=== PATIENT | male | born 1945 | race Caucasian/White ===

== ENCOUNTER → 2016-09-10 | Outpatient (CLI) | payer OTHER ==
[2015-03-03 16:02] VITALS: BP 128/64
[~2016-09-10] MED LIST: ALLO100T PO; ALPR0.257 PO; ASPI-482 PO; BUPR150T4 PO; CRESTOR20 MG PO; DICL100T PO; FENO43CA PO; FISH1CAP PO; GABA-585 PO; GLIM2TAB2 PO; HYDR-965 PO; ISOS30TA17 PO; LISI10TA2 PO; METF-620 PO; METO25TA4 PO; METO25TA9 PO; MULT-246 PO; MULT-658 PO; NITR0.4T SL; OMEP40CA5 PO; RANI150T2 PO; SITA100T PO; hydrocodone; metformin
--- NOTE | 2016-09-10 12:29 | KCIC ---
PROCEDURE CT of the abdomen and pelvis without intravenous contrast HISTORY Right lower quadrant pain for 1 month with diarrhea. No intravenous contrast due to poor renal function. Oral contrast was given. TECHNIQUE No intravenous contrast due to renal function. Oral contrast given. Exposure: One or more of the following individualized dose reduction techniques were utilized for this exam: 1. Automated exposure control. 2. Adjustment of the mA and/or kV according to patient size. 3. Use of iterative reconstruction technique. COMPARISON June 26, 2013. FINDINGS 5 millimeter noncalcified nodule identified in the right lung base. This is unchanged since the prior study. Examination of solid viscera, GI tract and vascular structures is compromised by the noncontrast technique. Mild coronary calcification. Liver and spleen appear unremarkable. Pancreas unremarkable. No evidence of adrenal mass. No evidence of focal lesion of either kidney. No urolithiasis or obstruction. Gallbladder surgically absent. No aortic aneurysm. Mild atheromatous calcification. No significant lymph node enlargement. No evidence of ascites. Prostate gland is enlarged, measures 5.8 cm wide, similar to prior study. Unopacified urinary bladder demonstrates no obvious abnormality, and is incompletely distended. No evidence of bowel obstruction. No acute pericolonic inflammation. The appendix is normal. There is a focal density within the cecum, measures about 5.4 cm diameter. This most likely represents some focal stool. There is mild retained stool throughout the remainder of the colon and rectum. Mild spondylosis of the lower spine. IMPRESSION 1. Small 5 millimeter noncalcified right lung base nodule, stable since prior exam. 2. The appendix is normal. 3. Focal density within the right cecum most likely focal stool. Although less likely, it is difficult to exclude a colon mass. Therefore, short-term follow up could be of benefit to document that this does not persist. 4. Prostatomegaly is again identified. Electronically signed by: Baldemar aPz MD (September 10, 2016 12:27:31)
== END | disposition home or self-care (01) ==
LOC: KCIC CT 08:51
PROVIDERS: ATTEND Family Medicine
DX: R10.31 Right lower quadrant pain (principal); I10 Essential (primary) hypertension; R19.7 Diarrhea, unspecified; N40.0 Benign prostatic hyperplasia without lower urinary tract symptoms; Z86.79 Personal history of other diseases of the circulatory system; F17.200 Nicotine dependence, unspecified, uncomplicated; Z79.01 Long term (current) use of anticoagulants; Z79.84 Long term (current) use of oral hypoglycemic drugs
CPT/HCPCS: 74176; 82565

== ENCOUNTER → 2016-10-17 | Day surgery (SDC) | payer OTHER ==
[~2016-10-17] MED LIST changes: -ISOS30TA17 PO; +ISOS30TA19 PO; +IV RINGERS,LACTATED 1000ML 1,000 ML IV SCH; +LIDOCAINE 2% PF Vial for OR 5 ML VIAL. ONE; +PROPOFOL 20 ML IV ONE; +PROPOFOL 60 ML IV ONE
[2016-10-17 11:26] VITALS: BP 116/75
--- NOTE | 2016-10-18 14:46 | PATHOLOGY ---
PATHOLOGY REPORT * * * * * * * * FINAL DIAGNOSIS: A. Small bowel biopsy: - No significant pathologic abnormalities. B. Gastric biopsy, antrum: - Consistent with reactive gastropathy. C. Esophageal biopsy, distal esophagus: - Segments of gastric and esophagogastric mucosa showing chronic inflammation. D. Esophageal biopsy, mid esophagus: - Segments of hyperplastic squamous esophageal mucosa consistent with reflux esophagitis. E. Terminal ileum biopsy: - No significant pathologic abnormalities. F. Random colon biopsies: - No significant pathologic abnormalities. COMMENT: A. Sections of the small bowel biopsy reveal segments of duodenal and small intestinal mucosa. Where best oriented, the mucosal villi appear normal. There are no sprue-like changes or significant inflammatory changes. B. Sections of the gastric antral biopsy show congestion, foveolar hyperplasia, and no significant inflammation. An immunoperoxidase stain for Helicobacter is obtained. No Helicobacter organisms are identified. The findings are consistent with a reactive gastropathy. C. Sections of the distal esophageal biopsy reveal segments of gastric mucosa and a single segment of esophagogastric mucosa showing mild to moderate chronic inflammation. There is no evidence of Dunbar change, dysplasia or malignancy. D. Sections of the middle esophageal biopsy reveal segments of tangentially oriented hyperplastic squamous esophageal mucosa consistent with reflux esophagitis. E. Sections of the terminal ileum biopsy reveal segments of small intestine mucosa. There are no sprue-like changes or significant inflammatory changes. F. Sections of the random colon biopsy reveal multiple segments of colonic mucosa. There is no evidence of a chronic destructive colitis, lymphocytic colitis, or collagenous colitis. Special Stain Performed: Immunoperoxidase stain for Helicobacter on B1. REPORT ELECTRONICALLY SIGNED BY: Sanjay Madden M.D. DATE/TIME: 10/18/2016 14:45 * * * * * * * * GROSS PATHOLOGY: A. Received in formalin labeled "Nely Pichardo, small bowel biopsy," are 4 segments of arzate soft tissue measuring from 0.1 to 0.3 cm in maximum dimension. The specimen is submitted entirely in cassette A1. B. Received in formalin labeled "antrum," are two segments of arzate soft tissue measuring from 0.2 and 0.3 cm in maximum dimension. The specimen is submitted entirely in cassette B1. C. Received in formalin labeled "distal esophagus," are 3 segments of arzate soft tissue measuring from 0.2 to 0.3 cm in maximum dimension. The specimen is submitted entirely in cassette C1. D. Received in formalin labeled "mid esophagus," are two segments of arzate soft tissue measuring from 0.1 and 0.2 cm in maximum dimension. The specimen is submitted entirely in cassette D1. E. Received in formalin labeled "terminal ileum," are two segments of arzate soft tissue each measuring from 0.3 cm in maximum dimension. The specimen is submitted entirely in cassette E1. F. Received in formalin labeled "random colon," are multiple segments of arzate soft tissue measuring from 0.1 to 0.4 cm in maximum dimension. The specimen is submitted entirely in cassette F1. (JPM; 10/17/16) INITIAL CPT CODE(S): A; 98052 B; 05267, 72449 C; 12538 D; 45626 E; 29523 F; 33425 Professional services [place] [facility] [place] [address] Technical services performed by [facility] at [address] [place] [address] [address] [address]. SPECIMEN(S) RECEIVED: A.Small bowel biopsy B.Antrum biopsy C.Distal esophagus D.Mid esophagus E.Terminal ileum F.Random colon CLINICAL HISTORY: Dysphagia, abdominal pain PATIENT: NELY PICHARDO /AGE: 206/23/1945 (Age: 71) PATIENT #: [id number] CASE #: SPECIMEN COLLECTION DATE: 10/17/2016 SPECIMEN RECEIVED DATE: 10/17/2016 [facility] - [id number] [place] [address] - PHONE: [phone] * * * END OF REPORT * * *
== END | disposition home or self-care (01) ==
LOC: ENDOS 08:45
PROVIDERS: ATTEND Internal Medicine Gastroenterology
DX: K64.0 First degree hemorrhoids (principal); K21.0 Gastro-esophageal reflux disease with esophagitis; Z87.19 Personal history of other diseases of the digestive system; M19.90 Unspecified osteoarthritis, unspecified site; E11.9 Type 2 diabetes mellitus without complications; E78.00 Pure hypercholesterolemia, unspecified; E78.5 Hyperlipidemia, unspecified; I25.10 Atherosclerotic heart disease of native coronary artery without angina pectoris; F17.210 Nicotine dependence, cigarettes, uncomplicated; Z83.3 Family history of diabetes mellitus; Z72.89 Other problems related to lifestyle; Z79.82 Long term (current) use of aspirin; Z90.49 Acquired absence of other specified parts of digestive tract; Z87.01 Personal history of pneumonia (recurrent); Z86.39 Personal history of other endocrine, nutritional and metabolic disease; Z87.39 Personal history of other diseases of the musculoskeletal system and connective tissue; Z88.8 Allergy status to other drugs, medicaments and biological substances
CPT/HCPCS: 43239; 43450; 45380; 82962; 88305; 88342; J2704

== ENCOUNTER 2017-09-24 17:14 | Emergency (ER) | payer OTHER ==
[2017-09-24 17:47] LABS: ADD MAN DIFF? NO
[2017-09-24 17:48] LABS: AGAP ISTAT 15 mmol/L (6-14); BASO # 0.1 x10^3/uL (0.0-0.2); BASO % 1 % (0-3); BUN ISTAT 21 mg/dL (8-26); CHLORIDE ISTAT 106 mmol/L (98-110); CREATININE ISTAT 1.6 mg/dL (0.5-1.4); EOS # 0.2 x10^3/uL (0.0-0.7); EOS % 3 % (0-3); GLUCOSE ISTAT 156 mg/dL (70-99); HEMATOCRIT 43.3 % (39.0-53.0); HEMATOCRIT ISTAT 41 % (37-52); HEMOGLOBIN 14.5 g/dL (13.0-17.5); HEMOGLOBIN ISTAT 13.9 g/dL (14-18); ION CA ISTAT 1.14 mmol/L (1.13-1.32); LYMPH # 2.3 x10^3/uL (1.0-4.8); LYMPH % 33 % (24-48); MEAN CORPUSCULAR HEMOGLOBIN 30 pg (25-35); MEAN CORPUSCULAR HGB CONC 34 g/dL (31-37); MEAN CORPUSCULAR VOLUME 89 fL (79-100); MONO # 0.6 x10^3/uL (0.0-1.1); MONO % 8 % (0-9); NEUT # 3.9 x10^3uL (1.8-7.7); NEUT % 55 % (31-73); PLATELET COUNT 181 x10^3/uL (140-400); POTASSIUM ISTAT 4.2 mmol/L (3.5-5.0); RED BLOOD COUNT 4.88 x10^6/uL (4.30-5.70); RED CELL DISTRIBUTION WIDTH 14.1 % (11.5-14.5); SODIUM ISTAT 139 mmol/L (135-145); TOT CO2 ISTAT 23 mmol/L (23-32); WHITE BLOOD COUNT 7.1 x10^3/uL (4.0-11.0)
[2017-09-24] MEDS: IV NORMAL SALINE 500ML BAG 500 ML IV ×2 (17:50→18:40)
[2017-09-24 18:03] LABS: ANION GAP 5 (6-14); BLOOD UREA NITROGEN 22 mg/dL (8-26); CALCIUM 8.4 mg/dL (8.5-10.1); CARBON DIOXIDE 26 mmol/L (21-32); CHLORIDE 106 mmol/L (98-107); CREATININE 1.7 mg/dL (0.7-1.3); GLUCOSE 170 mg/dL (70-99); POTASSIUM 4.2 mmol/L (3.5-5.1); SODIUM 137 mmol/L (136-145)
[2017-09-24 18:14] LABS: TROPONINI < 0.017 ng/mL (0.000-0.055)
[2017-09-24 18:15] LABS: NT-PRO BNP 114 pg/mL (0-124)
[2017-09-24] MEDS ORDERED: IV NORMAL SALINE 1000ML BAG 1,000 ML IV (18:45)
[2017-09-24] MEDS: IOHEXOL 300 MG/ML 100ML VIAL. IV (18:53)
== END 2017-09-24 20:40 | disposition home or self-care (01) ==
LOC: ER 20:40
DX: R42 Dizziness and giddiness (principal); E11.9 Type 2 diabetes mellitus without complications; K21.9 Gastro-esophageal reflux disease without esophagitis; E78.00 Pure hypercholesterolemia, unspecified; I10 Essential (primary) hypertension; M10.9 Gout, unspecified; Z90.49 Acquired absence of other specified parts of digestive tract; Z98.890 Other specified postprocedural states; Z88.8 Allergy status to other drugs, medicaments and biological substances
CPT/HCPCS: 36415; 70496; 70498; 80047; 80048; 83880; 84484; 85025; 93005; 96360; 99285; J7040; Q9967

== ENCOUNTER → 2017-09-24 | Outpatient (CLI) | payer OTHER | END | disposition home or self-care (01) | LOC: KCIC US 15:03 | DX: I10 Essential (primary) hypertension (principal); E11.9 Type 2 diabetes mellitus without complications; E78.00 Pure hypercholesterolemia, unspecified; F17.200 Nicotine dependence, unspecified, uncomplicated; R42 Dizziness and giddiness | CPT/HCPCS: 93880 ==

== ENCOUNTER → 2018-11-12 | Outpatient (CLI) | payer OTHER ==
[2017-09-24 20:21] VITALS: BP 174/76
[~2018-11-12] MED LIST changes: +ATOR20TA58 PO; +BUPR150T6 PO; +CETI10TA22 PO; +HYDR-3164 PO; +HYDR-3165 PO; -HYDR-965 PO; -IV RINGERS,LACTATED 1000ML 1,000 ML IV SCH; -LIDOCAINE 2% PF Vial for OR 5 ML VIAL. ONE; -METF-620 PO; +METF10007 PO; +METO-239 PO; -METO25TA9 PO; -PROPOFOL 20 ML IV ONE; -PROPOFOL 60 ML IV ONE
--- NOTE | 2018-11-12 12:04 | RAD ---
MR#: [id number] Date of Study: 11/12/2018 Ordering Physician: OSIEL CARVALHO, Referring Physician: NIMISHA BUENO Tech: RT Dewey VarelaR) (N) APPROVED REPORT Test Type: Exercise Stress Nurse/Tech: nayla Hobbs RN Test Indications: CAD Cardiac History: See Electronic Medical Record Medications: See Electronic Medical Record Medical History: CAD, smoker Resting ECG: SR Resting Heart Rate: 63 bpm Resting Blood Pressure: 155/65mmHg Pretest Chest Pain: None Nurse/Tech Notes lung sounds coarse, S1S2 Consent: The procedure was explained to the patient in lay terms. Informed consent was witnessed. Jhon eout was entered into [employer]. History and Stress Test performed by Nayla Hobbs RN Stress Symptoms Dyspnea POST EXERCISE Reason for Termination: Reached target heart rate Target HR: 126 Max HR: 130 bpm Exercise duration: 7:09 min:sec, 2 Stage Max Blood Pressure: 192/85mmHg Blood Pressure response to exercise: Normal blood pressure response during stress. Heart Rate response to exercise: normal response Chest Pain: No. Arrhythmia: No. ST Change: No. INTERPRETATION Stress EKG Conclusion: Non-diagnostic EKG due to motion artifact. Imaging Protocol IMAGE PROTOCOL: Rest Tc-99m/stress Tc-99m 1 day Rest: Stress: Viability: Radiopharm.Tc99m EdlmdixfdWq76a Sestamibi Lajp35pNh 33mCi Duration 15min. 15min. Img Date 11/12/2018 11/12/2018 Inj-Img Opdx55ujs. 60min. Rest Admin Site:IV - Right HandAdministrator:RT Avery (Ginny)(N) Stress Admin Site: IV - Right HandAdministrator: WALLY Arriola STRESS DATA End Diast. Vol.96.0mlAv. Heart Rate80.0bpm End Syst. Vol.26.0mlCO Index BSA5.6L/min Myocardial Zfdz329.0gEject. Msrtvheb04.0% Stress Rates Pk. Fill Rate3.30EDV/secLVtime Pk. Fill 230.76msec Pk. Empty Rate5.05ESV/secLVtime Pk. Vimbz664.31msec 1/3 Pk. Fill0.88EDV/sec Stress Scores Regional WT1.00Summed WT8.00 Regional WM0.00Summed WM0.00 LV Perfusion There is a moderate sized septal reversible defect suggestive of impaired perfusion reserve in the LA D. Wall Motion Normal wall motion. LV Perf. Quant 17 Seg. SSS8.00 17 Seg. SRS1.00 17 Seg. SDS7.00 Stress Defect Extent (% LAD)21.30Rest Defect Extent (% LAD)0.00Rev. Defect Extent (% LAD)20.00 Stress Defect Extent (% LCX) 0.00Rest Defect Extent (% LCX)0.00Rev. Defect Extent (% LCX)0.00 Stress Defect Extent (% RCA)7.80Rest Defect Extent (% RCA)0.00Rev. Defect Extent (% RCA)7.80 Stress Defect Extent (% EMMA)15.00Rest Defect Extent (% EMMA)0.00Rev. Defect Extent (% EMMA)14.60 Other Information Quality:Fair Risk Assessment: Moderate Risk Conclusion 1. Non-diagnostic EKG due to motion artifact. 2. Average exercise capacity at 7.0 mets 3. Reversible septal defect. 4. Moderate risk study. 5. EF at 70%. Signed by : Osiel Carvalho, Electronically Approved : 11/12/2018 12:04:01
== END | disposition home or self-care (01) ==
LOC: NM 08:20
PROVIDERS: ATTEND Internal Medicine Cardiovascular Disease
DX: I25.10 Atherosclerotic heart disease of native coronary artery without angina pectoris (principal); Z87.891 Personal history of nicotine dependence; Z79.01 Long term (current) use of anticoagulants
CPT/HCPCS: 78452; 93017; A9500; 96376

== ENCOUNTER → 2018-12-10 | Outpatient (CLI) | payer OTHER ==
[2017-09-24 20:21] VITALS: BP 174/76
--- NOTE | 2018-12-10 10:00 | RAD ---
MR#: [id number] Date of Study: 12/10/2018 Ordering Physician: OSIEL CARVALHO, Referring Physician: OSIEL CARVALHO, Tech: Vanessa Hernandez RVT,CONI APPROVED REPORT Patient Location: OUT-PATIENT Laterality:Bilateral Indications Dizziness and Vertigo Risk Factors Hypertension: Hyperlipidemia Diabetes CAD, Smoking Doppler Spectral Velocity Analysis Right Left pCCA 71/9 cm/spCCA 79/14 cm/s mCCA 50/7 cm/smCCA 49/9 cm/s dCCA 31/9 cm/sdCCA 34/6 cm/s ECA 108/9 cm/sECA 121/9 cm/s pICA 38/12 cm/spICA 58/16 cm/s April 64/18 cm/smICA 77/27 cm/s dICA 68/19 cm/sdICA 86/28 cm/s Vert. 46/11 cm/sVert. 24/8 cm/s ICA/CCA 0.96ICA/CCA 1.09 Findings Grayscale images of the bilateral common carotid, external and internal carotid vessels demonstrates mild plaque at the level of the carotid bulbs. Bilateral vertebral velocities are antegrade. No significant stenosis is identified based on velocity criteria. Grayscale images are also grossly u nremarkable. Overall 0 to less than 50% stenosis. Critical Notification Critical Value: No <Conclusion> No significant carotid occlusive disease bilaterally. Signed by : Osiel Carvalho, Electronically Approved : 12/10/2018 09:59:38
--- NOTE | 2018-12-10 10:01 | RAD ---
MR#: [id number] Date of Study: 12/10/2018 Ordering Physician: OSIEL CARVALHO, Referring Physician: OSIEL CARVALHO, Tech: Vanessa Hernandez RVT,CONI APPROVED REPORT Patient Location: OUT-PATIENT Risk Factors Hypertension Diabetes CAD Smoking Duplex Results A/PTransverseLongitudinal Proximal Aorta 2.8cm2.9cm Mid Aorta 2.4cm2.8cm Distal Aorta 2.1cm1.9cm Rt. Common Iliac Artery1.1cm1.4cm Lt. Common Iliac Artery 1.4cm1.1cm Doppler VelocityWaveform Aorta Mid. 90.7 cm/sec Distal Aorta 88.3 cm/sec Rt. Common Iliac Tqsihi502.6 cm/sec Lt. Common Iliac Artery 100.0 cm/sec Findings Grayscale images of the abdominal aorta are limited due to body habitus and bowel gas No significant aortic aneurysm is noted. Maximum dimension approximately 2.8 cm. No significant iliac artery aneurysm is noted. No velocity deceleration is noted. No obvious high-grade stenosis identified by spectral and color Do ppler images. Critical Notification Critical Value: No <Conclusion> Negative for abdominal aortic aneurysm Signed by : Osiel Carvalho, Electronically Approved : 12/10/2018 10:00:53
--- NOTE | 2018-12-10 11:17 | CARD ---
MR#: [id number] Date of Study: 12/10/2018 Ordering Physician: OSIEL HUBBARD, Referring Physician: OSIEL HUBBARD, Tech: Wendy Mendiola [facility] APPROVED REPORT EXAM: Two-dimensional and M-mode echocardiogram with Doppler and color Doppler. Other Information Quality : AverageHR: 72bpm Rhythm : NSR INDICATION PAD 2D DIMENSIONS RVDd3.2 (2.9-3.5cm)Left Atrium(2D)3.5 (1.6-4.0cm) IVSd1.2 (0.7-1.1cm)Aortic Root(2D)3.6 (2.0-3.7cm) LVDd4.8 (3.9-5.9cm)LVOT Diameter2.6 (1.8-2.4cm) PWd1.1 (0.7-1.1cm)LVDs3.3 (2.5-4.0cm) FS (%) 30.6 %SV61.8 ml LVEF(%)58.0 (>50%) Aortic Valve AoV Peak Reji.156.3cm/sAoV VTI30.8cm AO Peak GR.9.8mmHgLVOT Peak Reji.111.0cm/s AO Mean GR.5mmHgAVA (VMAX)3.78cm2 HARJIT (VTI)3.80cm2 Mitral Valve MV E Ugeriyyi30.4cm/sMV DECEL HDGF345ic MV A Ewwgupns284.5cm/sE/A Ratio0.5 Pulmonary Valve PV Peak Fretonsl52.8cm/s LEFT VENTRICLE The left ventricle is normal size. There is mild concentric left ventricular hypertrophy. The left ve ntricular systolic function is normal and the ejection fraction is within normal range. The Ejection Fraction is 55-60%. There is normal LV segmental wall motion. Transmitral Doppler flow pattern is Gra de I-abnormal relaxation pattern. RIGHT VENTRICLE The right ventricle is normal size. There is normal right ventricular wall thickness. The right ventr icular systolic function is normal. ATRIA The left atrium size is normal. The right atrium size is normal. The interatrial septum is intact wit h no evidence for an atrial septal defect or patent foramen ovale as noted on 2-D or Doppler imaging. AORTIC VALVE The aortic valve is calcified but opens well. The aortic valve is trileaflet. Doppler and Color Flow revealed no significant aortic regurgitation. There is no significant aortic valvular stenosis. There is no aortic valvular vegetation. MITRAL VALVE The mitral valve is normal in structure and function. There is no evidence of mitral valve prolapse. There is no mitral valve stenosis. Doppler and Color Flow revealed no mitral valve regurgitation note d. TRICUSPID VALVE The tricuspid valve is normal in structure and function. Doppler and Color Flow revealed no tricuspid valve regurgitation noted. There is no tricuspid valve prolapse or vegetation. There is no tricuspid valve stenosis. PULMONIC VALVE The pulmonic valve is not well visualized. GREAT VESSELS The aortic root is normal in size. The ascending aorta is normal in size. The IVC is normal in size a nd collapses >50% with inspiration. PERICARDIAL EFFUSION There is no evidence of significant pericardial effusion. Critical Notification Critical Value: No <Conclusion> The left ventricular systolic function is normal and the ejection fraction is within normal range. Th e Ejection Fraction is 55-60%. There is normal LV segmental wall motion. Signed by : Osiel Hubbard, Electronically Approved : 12/10/2018 11:16:58
== END | disposition home or self-care (01) ==
LOC: US 14:54
PROVIDERS: ATTEND Internal Medicine Cardiovascular Disease
DX: I65.23 Occlusion and stenosis of bilateral carotid arteries (principal); I35.8 Other nonrheumatic aortic valve disorders; E11.22 Type 2 diabetes mellitus with diabetic chronic kidney disease; I13.10 Hypertensive heart and chronic kidney disease without heart failure, with stage 1 through stage 4 chronic kidney disease, or unspecified chronic kidney disease; N18.9 Chronic kidney disease, unspecified; I25.10 Atherosclerotic heart disease of native coronary artery without angina pectoris; E78.5 Hyperlipidemia, unspecified; I73.9 Peripheral vascular disease, unspecified
CPT/HCPCS: 76770; 93306; 93880

== ENCOUNTER → 2021-03-26 | Outpatient (CLI) | payer MEDICARE ==
[2017-09-24 20:21] VITALS: BP 174/76
[~2021-03-26] MED LIST changes: +BUPR150T21 PO; -BUPR150T6 PO; -CETI10TA22 PO; +CETI10TA74 PO; -FENO43CA PO; +FENO43CA5 PO; -GLIM2TAB2 PO; +GLIM2TAB7 PO; +LISI10TA16 PO; -LISI10TA2 PO; -NITR0.4T SL; +NITR0.4T24 SL; -OMEP40CA5 PO; +OMEP40CA7 PO
--- NOTE | 2021-03-26 15:16 | KCIC ---
CT of the chest without contrast. 03/26/2021 INDICATION: Pain in the left upper chest. COMPARISON STUDY: CT of the chest with contrast June 24, 2005. TECHNIQUE: Multidetector CT imaging of the chest was performed without contrast FINDINGS: Heart size is normal. No pericardial effusion is seen. Areas of coronary calcification note d. No pathologically enlarged mediastinal adenopathy is identified. Emphysematous changes are noted t hroughout the lungs. There is a calcified granuloma in the left upper lung. No pneumothorax, pleural effusion, or acute appearing infiltrate is identified. No evidence of acute osseous abnormality is id entified. To the right of the xiphoid process there is a round, smoothly marginated nodule immediat suzie under the skin measuring 1.3 cm in diameter. The density is relatively low. The appearance here a s a benign etiology such as cyst. No other nodules present on CT of the abdomen from September 10, 2016, tho ugh smaller at that time. Impression: 1. No evidence of acute cardiopulmonary process 2. 1.3 cm nodule in the subcutaneous tissues of the right anterior chest, slightly increased since 2016 likely a cyst or other benign lesion. CT DOSING PQRS STATEMENT: One or more of the following individualized dose reduction techniques were utilized for this examinat ion: 1. Automated exposure control 2. Adjustment of the mA and/or kV according to patient size 3. Use of iterative reconstruction technique Electronically signed by: Ted Erwin MD (03/26/2021 3:13 PM) [id number]
== END ==
LOC: KCIC CT 13:38
PROVIDERS: ATTEND Family Medicine
DX: R22.2 Localized swelling, mass and lump, trunk (principal); I25.10 Atherosclerotic heart disease of native coronary artery without angina pectoris; J43.9 Emphysema, unspecified; J84.10 Pulmonary fibrosis, unspecified
CPT/HCPCS: 71250

== ENCOUNTER → 2021-06-11 | Outpatient (CLI) | payer MEDICARE ==
[2017-09-24 20:21] VITALS: BP 174/76
[~2021-06-11] MED LIST changes: +REGADENOSON 0.4 MG/5 ML DISP.SYRIN. IV ONE
--- NOTE | 2021-06-11 12:37 | CARD ---
MR#: [id number] Date of Study: 06/11/2021 Ordering Physician: OSIEL HUBBARD, Referring Physician: OSIEL HUBBARD, Tech: Max Wren [facility] APPROVED REPORT EXAM: Two-dimensional and M-mode echocardiogram with Doppler and color Doppler. Other Information Quality : AverageHR: 62bpm Rhythm : NSR INDICATION 3 vessel CAD RISK FACTORS Hyperlipidemia Family History Smoking 2D DIMENSIONS Left Atrium(2D)3.4 (1.6-4.0cm)IVSd1.1 (0.7-1.1cm) Aortic Root(2D)3.7 (2.0-3.7cm)LVDd5.5 (3.9-5.9cm) LVOT Diameter2.4 (1.8-2.4cm)PWd1.1 (0.7-1.1cm) LVDs3.0 (2.5-4.0cm)FS (%) 46.0 % SV114.3 ml Aortic Valve AoV Peak Reji.118.0cm/sAoV VTI27.6cm AO Peak GR.5.6mmHgLVOT Peak Reji.100.0cm/s AO Mean GR.3mmHgAVA (VMAX)3.83cm2 Mitral Valve MV E Peuefifm73.6cm/sMV E Peak Gr.4mmHg MV DECEL [id number] A Dqsjyido557.3cm/s MV E Mean Gr.1mmHgE/A Ratio0.9 Pulmonary Valve PV Peak Bbmfhvrj12.1cm/s Tricuspid Valve TR P. Iaixboin957ep/sTR Peak Gr.10mmHg Pulmonary Vein S1 Kzdvcdai06.3cm/sD2 Psdtdkox02.7cm/s LEFT VENTRICLE The left ventricle is normal size. There is borderline to mild concentric left ventricular hypertroph y. The left ventricular systolic function is normal and the ejection fraction is within normal range. LV ejection fraction of 50 to 55%. There is normal LV segmental wall motion. No left ventricle throm bus noted on this study. There is no ventricular septal defect visualized. There is no left ventricul ar aneurysm. There is no mass noted in the left ventricle. RIGHT VENTRICLE The right ventricle is normal size. There is normal right ventricular wall thickness. The right ventr icular systolic function is normal. ATRIA The left atrium size is normal. The right atrium size is normal. The interatrial septum is intact wit h no evidence for an atrial septal defect or patent foramen ovale as noted on 2-D or Doppler imaging. AORTIC VALVE The aortic valve is normal in structure and function. The aortic valve is trileaflet. Doppler and Col or Flow revealed no significant aortic regurgitation. There is no significant aortic valvular stenosi s. There is no aortic valvular vegetation. MITRAL VALVE The mitral valve is normal in structure and function. There is no evidence of mitral valve prolapse. There is no mitral valve stenosis. Doppler and Color Flow revealed trace mitral valve regurgitation. TRICUSPID VALVE The tricuspid valve is normal in structure and function. Doppler and Color Flow revealed trace tricus pid regurgitation. There is no tricuspid valve prolapse or vegetation. There is no tricuspid valve st enosis. PULMONIC VALVE The pulmonary valve is normal in structure and function. Doppler and Color Flow revealed no pulmonic valvular regurgitation. There is no pulmonic valvular stenosis. GREAT VESSELS The aortic root is normal in size. The ascending aorta is normal in size. The pulmonary artery is nor mal. The IVC is normal in size and collapses >50% with inspiration. PERICARDIAL EFFUSION There is no pleural effusion. There is no evidence of significant pericardial effusion. Critical Notification Critical Value: No <Conclusion> The left ventricle is normal size. The left ventricular systolic function is normal and the ejection fraction is within normal range. LV ejection fraction of 50 to 55%. There is normal LV segmental wall motion. There is borderline to mild concentric left ventricular hypertrophy. Doppler and Color Flow revealed no significant aortic regurgitation. There is no significant aortic valvular stenosis. Doppler and Color Flow revealed trace mitral valve regurgitation. Doppler and Color Flow revealed trace tricuspid regurgitation. Signed by : Hossein Hull MD Electronically Approved : 06/11/2021 12:36:59
--- NOTE | 2021-06-11 13:15 | RAD ---
MR#: [id number] Date of Study: 06/11/2021 Ordering Physician: OSIEL HUBBARD, Referring Physician: NIMISHA BUENO Tech: RT Demetria (R) (N) APPROVED REPORT Test Type: Pharmacological Stress Nurse/Tech: Tran Granados R.N. Test Indications: 3-vessel CAD Cardiac History: OR, DM Medications: See Electronic Medical Record Medical History: See Electronic Medical Record Resting ECG: SR Resting Heart Rate: 60 bpm Resting Blood Pressure: 154/72mmHg Pretest Chest Pain: No chest pain Nurse/Tech Notes S1S2, lungs CTA Consent: The procedure was explained to the patient in lay terms. Informed consent was witnessed. Jhon eout was entered into [employer]. History and Stress Test performed by MARIALUISA Cunningham, DICK (R) (N) Pharm. Details Pharmacologic stress testing was performed using 0.4mg per 5ml of regadenoson given intravenously ove r 7-10 seconds. Stress Symptoms SOA, stomach cramp POST EXERCISE Reason for Termination: Infusion complete Max HR: 91 bpm Max Blood Pressure: 176/76mmHg Blood Pressure response to exercise: Normal blood pressure response during stress. Heart Rate response to exercise: wnl Chest Pain: No. Arrhythmia: No. ST Change: No. INTERPRETATION Stress EKG Conclusion: The resting EKG shows a sinus rhythm with minimal nonspecific ST segment [place] es. The stress EKG showed no significant changes from baseline. No EKG evidence of stress-induced ischemia. Imaging Protocol IMAGE PROTOCOL: Rest Tc-99m/stress Tc-99m 1 day Rest: Stress: Viability: Radiopharm.Tc99m OjvkgouryLy18a Sestamibi Dose10.3mCi 33mCi Duration 15min. 10min. Img Date 06/11/2021 06/11/2021 Inj-Img Ahix18gaq. 60min. Rest Admin Site:IV - Left AntecubitalAdministrator:MARIALUISA Cunningham ARRT (Ginny)(N) Stress Admin Site: IV - Left AntecubitalAdministrator: Sharla Baker, NMTCB, ARRT (R)(N) STRESS DATA End Diast. Vol.124.0mlAv. Heart Rate81.0bpm End Syst. Vol.38.0mlCO Index BSA0.0L/min Myocardial Ahqf986.0gEject. Pwmmqodr24.0% Stress Rates Pk. Fill Rate3.48EDV/secLVtime Pk. Fill 217.68msec Pk. Empty Rate4.35ESV/secLVtime Pk. Rrwzt851.04msec 05/07 Pk. Fill0.89EDV/sec Stress Scores Regional WT0.00Summed WT3.00 Regional WM0.00Summed WM1.00 LV Perfusion The stress scans showed no significant defects. The rest scans showed no significant defects. Nuclear imaging shows no reversible ischemia or infarct. Wall Motion LV systolic function is within normal limits with an ejection fraction of 69%. LV Perf. Quant 17 Seg. SSS6.00 17 Seg. SRS0.00 17 Seg. SDS6.00 Stress Defect Extent (% LAD)21.30Rest Defect Extent (% LAD)0.00Rev. Defect Extent (% LAD)21.30 Stress Defect Extent (% LCX) 15.00Rest Defect Extent (% LCX)0.00Rev. Defect Extent (% LCX)15.00 Stress Defect Extent (% RCA)0.00Rest Defect Extent (% RCA)0.00Rev. Defect Extent (% RCA)0.00 Stress Defect Extent (% EMMA)14.80Rest Defect Extent (% EMMA)0.00Rev. Defect Extent (% EMMA)14.80 Conclusion 1. No EKG evidence of stress-induced ischemia. 2. Nuclear imaging shows no reversible ischemia or infarct. 3. Normal left ventricular systolic function with an ejection fraction of 69%. 4. Moderately low to low risk Lexiscan nuclear stress test. Signed by : Hossein Hull MD Electronically Approved : 06/11/2021 13:15:13
== END ==
LOC: NM 08:42
PROVIDERS: ATTEND Internal Medicine Cardiovascular Disease
DX: I51.7 Cardiomegaly (principal); I25.10 Atherosclerotic heart disease of native coronary artery without angina pectoris
CPT/HCPCS: 78452; 93017; 93306; A9500; J2785; C8929